=== PATIENT | female | born 1955 | race Caucasian/White ===

== ENCOUNTER → 2016-10-07 | Outpatient (CLI) | payer OTHER ==
[~2016-10-07] MED LIST: AZIT250T3 PO; BACT800T5 PO; ERGO1CAP30 PO; ESTR0.62 VAGINAL; HYDR5SYP10 PO; OMEP20TA PO; PRIL20CA9 PO; REPL5000 CHEW; VITATAB43 PO; ZOFR4TAB PO
[2016-10-07 15:24] LABS: AUTOMATED NEUTROPHIL # 2.7 TH/MM3 (1.8-7.7); BASOPHIL # 0.1 TH/MM3 (0-0.2); BASOPHIL % 1.1 % (0.0-2.0); EOSINOPHIL # 0.1 TH/MM3 (0-0.4); EOSINOPHIL % 1.3 % (0.0-4.0); HEMATOCRIT 39.1 % (35.0-46.0); HEMO FLAGS DIFF FINAL; LYMPH % 40.8 % (9.0-44.0); LYMPHOCYTE # 2.2 TH/MM3 (1.0-4.8); MEAN CELL VOLUME 88.7 FL (80.0-100.0); MEAN CORPUSCULAR HEMOGLOBIN 29.4 PG (27.0-34.0); MEAN CORPUSCULAR HGB CONC 33.2 % (32.0-36.0); MONO % 6.5 % (0.0-8.0); NEUT % 50.3 % (16.0-70.0); PLATELET COUNT 168 TH/MM3 (150-450); RED BLOOD COUNT 4.41 MIL/MM3 (4.00-5.30); RED CELL DISTRIBUTION WIDTH 12.9 % (11.6-17.2); WHITE BLOOD COUNT 5.3 TH/MM3 (4.0-11.0)
[2016-10-07 15:49] LABS: ALT (GPT) 20 U/L (10-53); ANION GAP 5 MEQ/L (5-15); AST (GOT) 15 U/L (15-37); BICARBONATE 30.3 MEQ/L (21.0-32.0); BLOOD UREA NITROGEN 11 MG/DL (7-18); CHLORIDE 107 MEQ/L (98-107); GLOMERULAR FILTRATION RATE 57 ML/MIN (>89); GLUCOSE,FASTING 86 MG/DL (74-99); MAGNESIUM 2.3 MG/DL (1.5-2.5); POTASSIUM 3.8 MEQ/L (3.5-5.1); RHEUMATOID FACTOR TRIGGER LESS THAN 10.0 IU/ML (0.0-14.9); SODIUM (NA) 142 MEQ/L (136-145)
[2016-10-07 15:58] LABS: ALKALINE PHOSPHATASE 60 U/L (45-117); TOTAL BILIRUBIN ADULT 0.3 MG/DL (0.2-1.0); TRANSFERRIN IRON PROFILE 243 MG/DL (200-360)
[2016-10-07 16:05] LABS: CREATINE KINASE 91 U/L (26-192)
== END ==
LOC: CLAB 14:52
PROVIDERS: ATTEND Family Medicine
DX: M79.1 Myalgia (principal); K31.84 Gastroparesis; K21.9 Gastro-esophageal reflux disease without esophagitis; Z71.89 Other specified counseling; E53.8 Deficiency of other specified B group vitamins; M25.50 Pain in unspecified joint
CPT/HCPCS: 36415; 80053; 82306; 82550; 82607; 83540; 83550; 83735; 84443; 85025; 86038; 86200; 86430

== ENCOUNTER → 2017-07-29 | Outpatient (CLI) | payer OTHER ==
[~2017-07-29] MED LIST changes: -BACT800T5 PO; -PRIL20CA9 PO; +PROZ20CA11 PO; -REPL5000 CHEW; -VITATAB43 PO
[2017-07-29 07:55] LABS: AUTOMATED NEUTROPHIL # 2.3 TH/MM3 (1.8-7.7); BASOPHIL # 0.1 TH/MM3 (0-0.2); BASOPHIL % 1.1 % (0.0-2.0); EOSINOPHIL # 0.1 TH/MM3 (0-0.4); EOSINOPHIL % 1.6 % (0.0-4.0); HEMOGLOBIN 13.2 GM/DL (11.6-15.3); LYMPH % 47.2 % (9.0-44.0); LYMPHOCYTE # 2.5 TH/MM3 (1.0-4.8); MEAN CORPUSCULAR HEMOGLOBIN 29.9 PG (27.0-34.0); MEAN CORPUSCULAR HGB CONC 32.9 % (32.0-36.0); MEAN PLATELET VOLUME 8.9 FL (7.0-11.0); MONOCYTE # 0.4 TH/MM3 (0-0.9); NEUT % 43.1 % (16.0-70.0); PLATELET COUNT 141 TH/MM3 (150-450); RED CELL DISTRIBUTION WIDTH 13.4 % (11.6-17.2); WHITE BLOOD COUNT 5.3 TH/MM3 (4.0-11.0)
[2017-07-29 08:24] LABS: ALBUMIN 3.6 GM/DL (3.4-5.0); ALT (GPT) 18 U/L (10-53); AST (GOT) 15 U/L (15-37); BICARBONATE 29.6 MEQ/L (21.0-32.0); BLOOD UREA NITROGEN 16 MG/DL (7-18); CALCIUM 8.7 MG/DL (8.5-10.1); CHLORIDE 107 MEQ/L (98-107); CHOLESTEROL 219 MG/DL (120-200); CREATININE 0.95 MG/DL (0.50-1.00); GLOMERULAR FILTRATION RATE 60 ML/MIN (>89); GLUCOSE,FASTING 83 MG/DL (74-99); SODIUM (NA) 142 MEQ/L (136-145); TRIGLYCERIDES 52 MG/DL (42-150)
[2017-07-29 08:33] LABS: ALKALINE PHOSPHATASE 54 U/L (45-117); CHOLESTEROL/ HDL RATIO 2.81 RATIO; FREE T4 0.79 NG/DL (0.76-1.46); HDL CHOLESTEROL 77.7 MG/DL (40.0-60.0); LDL CHOLESTEROL 131 MG/DL (0-99); TOTAL BILIRUBIN ADULT 0.3 MG/DL (0.2-1.0); TOTAL PROTEIN 6.9 GM/DL (6.4-8.2)
== END ==
LOC: CLAB 07:08
PROVIDERS: ATTEND Family Medicine
DX: F34.1 Dysthymic disorder (principal); E78.2 Mixed hyperlipidemia; R94.4 Abnormal results of kidney function studies
CPT/HCPCS: 36415; 80053; 80061; 84439; 84443; 85025